=== PATIENT | female | born 1965 | race Caucasian/White ===

== ENCOUNTER 2016-06-21 18:03 | Emergency (ER) | payer MEDICAID, OTHER ==
[2016-06-21] MEDS ORDERED: NS 1,000 ML IV ONE (18:35)
[2016-06-21 18:39] LABS: % IMMATURE GRANULYOCYTES 0.4 % (0.0-1.1); ABSOLUTE IMMATURE GRANULOCYTES 0.04 10^3/uL (0.00-0.10); ADD DIFF? NO; ADD MORPH? NO; ADD SCAN? NO; ATYPICAL LYMPHOCYTE FLAG 10 (0-99); FRAGMENT RBC FLAG 0 (0-99); HEMATOCRIT 36.7 % (38.0-47.0); HEMOGLOBIN 12.7 g/dL (12.6-16.3); LEFT SHIFT FLG 20 (0-99); LIPEMIA HEMOLYSIS FLAG 90 (0-99); MEAN CELL HEMOGLOBIN 28.7 pg (27.9-34.1); MEAN CELL HEMOGLOBIN CONCENTR. 34.6 g/dL (32.4-36.7); MEAN CELL VOLUME 82.8 fL (81.5-99.8); MEAN PLATELET VOLUME 9.1 fL (8.7-11.7); PLATELET CLUMPS FLAG 0 (0-99); PLATELET COUNT 326 10^3/uL (150-400); RED BLOOD CELL COUNT 4.43 10^6/uL (4.18-5.33); RED CELL DISTRIBUTION WIDTH 12.7 % (11.5-15.2)
[2016-06-21 18:54] LABS: COLOR YELLOW; LEUKOCYTE ESTERASE,URINE 1+ (NEGATIVE); NITRITE,URINE NEGATIVE (NEGATIVE)
[2016-06-21 18:56] LABS: MUCUS TRACE /lpf (NONE-1+)
[2016-06-21 18:59] LABS: ANION GAP 11 mEq/L (8-16); CALCIUM 9.1 mg/dL (8.5-10.4); CARBON DIOXIDE 22 mEq/l (22-31); CHLORIDE 100 mEq/L (97-110); CREATININE 0.6 mg/dL (0.6-1.0); GLOMERULAR FILTRATION RATE > 60; GLUCOSE 87 mg/dL (70-100); SODIUM 133 mEq/L (134-144)
--- NOTE | 2016-06-21 19:05 | EDPHY ---
H & P Stated Complaint: abd cramping(no periods for 6 months)so bad felt she would pass out Time Seen by Provider: 06/21/16 18:19 HPI/ROS: CHIEF COMPLAINT: Lower abdominal cramping HISTORY OF PRESENT ILLNESS: 50-year-old female presents emergency department reporting lower abdominal cramping intermittent starting in the middle of the night last night. Patient reports it completely goes away between episodes. Tonight she had 3 episodes closer together and more severe. She states her pain was so severe she dropped to her knees, became sweaty, nauseous and felt like she was going to pass out. Patient denies fevers or chills. She reports the last 2 nights she ate coconut butter which she has never eaten before, both nights she developed hives and burning in her mouth. She reports normal bowel movements for her which are loose. No vomiting. Patient denies urinary frequency, urgency or dysuria. She does report a different odor to her urine. She denies vaginal discharge. Patient reports she has not had a menstrual period for 5-6 months. Patient is being currently worked up for rheumatoid arthritis. She has taken ibuprofen a few times over the last 5 days, and Celebrex twice in the last 3 days. Patient denies back pain. Patient denies chest pain or shortness of breath. No abdominal surgeries. REVIEW OF SYSTEMS: A comprehensive 10 point review of systems is otherwise negative aside from elements mentioned in the history of present illness. Source: Patient Exam Limitations: No limitations - Personal History LMP (Females 10-55): Over 28 Days Ago Current Tetanus/Diphtheria Vaccine: No - Medical/Surgical History Hx Asthma: No Hx Chronic Respiratory Disease: No Hx Diabetes: No Hx Cardiac Disease: No Hx Renal Disease: No Hx Cirrhosis: No Hx Alcoholism: No Hx HIV/AIDS: No Hx Splenectomy or Spleen Trauma: No Other PMH: RA - Social History Smoking Status: Never smoked - Physical Exam Exam: Physical Exam Gen: Alert and Oriented, NAD HEENT: PERRL, moist mucous membranes NECK: no meningismus CV: regular rate and regular rhythm PULM: CTAB, no wheezes ABDOMEN: soft, non tender to palpation, BS present BACK: No CVA tenderness NEURO: Neurologically grossly intact EXTREMITIES: normal appearing SKIN: no rash or break in skin on exposed skin PSYCH: answers questions appropriately. Constitutional: Initial Vital Signs Temperature (C) 36.9 C 06/21/16 18:07 Heart Rate 83 06/21/16 18:07 Respiratory Rate 17 06/21/16 18:07 Blood Pressure 98/59 L 06/21/16 18:07 O2 Sat (%) 99 06/21/16 18:07 O2 Delivery Mode Room Air Allergies/Adverse Reactions: No Known Allergies Allergy (Unverified 06/21/16 18:06) Home Medications: Medication Instructions Recorded ASPIRIN 06/21/16 CeleBREX 06/21/16 Cephalexin [Keflex] 500 mg PO BID 3 Days 06/21/16 IBUPROFEN 06/21/16 Medical Decision Making - Diagnostics Imaging Results: Imaging Impressions Pelvic/Renal Ultrasound 06/21/16 19:04 Impression: Negative pelvic ultrasound, a source for pelvic pain is not identified. Results called and discussed with Maddie Gonzalez NP on 06/21/2016 at 21:55 Imaging: Discussed imaging studies w/ [employer] teacher Radiologist ED Course/Re-evaluation: IV established, CBC, chemistry panel, urinalysis, test and pelvic ultrasound ordered. CBC shows a mildly elevated white blood cell count at 10,000 with a left shift, chemistry panel is unremarkable, urinalysis shows 1-3 RBCs, 5-10 WBCs, pelvic ultrasound is normal. I will treat the patient with Keflex for a urinary tract infection. I am unsure if her abdominal cramping is due to her urinary tract infection or allergic reaction to the coconut butter. Patient is advised to stop eating coconut as it causes ulcers in her mouth. Urine culture is pending. Patient is given strict return precautions for any worsening symptoms, new symptoms or concerns. Differential Diagnosis: Diagnosis considered but not limited to appendicitis, ovarian cyst, ovarian torsion, urinary tract infection, pyelonephritis, gastroenteritis, allergic reaction - Data Points Laboratory Results: Laboratory Results 06/21/16 18:29 06/21/16 18:29 06/21/16 06/21/16 06/21/16 18:40 18:29 18:29 WBC RBC Hgb Hct MCV MCH MCHC RDW Plt Count MPV Neut % (Auto) Lymph % (Auto) [place] % (Auto) Eos % (Auto) Baso % (Auto) Nucleat RBC Rel Count Absolute Neuts (auto) Absolute Lymphs (auto) Absolute Monos (auto) Absolute Eos (auto) Absolute Basos (auto) Absolute Nucleated RBC Immature Gran % Immature Gran # Sodium 133 mEq/L L mEq/L (134-144) Potassium 4.0 mEq/L mEq/L (3.5-5.2) Chloride 100 mEq/L mEq/L (97-110) Carbon Dioxide 22 mEq/l mEq/l (22-31) Anion Gap 11 mEq/L mEq/L (8-16) BUN 16 mg/dL mg/dL (7-23) Creatinine 0.6 mg/dL mg/dL (0.6-1.0) Estimated GFR > 60 Glucose 87 mg/dL mg/dL (70-100) Calcium 9.1 mg/dL mg/dL (8.5-10.4) Beta HCG, Qual NEGATIVE Urine Color YELLOW Urine Appearance HAZY Urine pH 5.0 (5.0-7.5) Ur Specific [place] 1.018 (1.002-1.030) Urine Protein NEGATIVE (NEGATIVE) Urine Ketones 1+ H (NEGATIVE) Urine Blood NEGATIVE (NEGATIVE) Urine Nitrate NEGATIVE (NEGATIVE) Urine Bilirubin NEGATIVE (NEGATIVE) Urine Urobilinogen NEGATIVE EU EU (0.2-1.0) Ur Leukocyte Esterase 1+ H (NEGATIVE) Urine RBC 3-5 /hpf H /hpf (0-3) Urine WBC 5-10 /hpf H /hpf (0-3) Ur Epithelial Cells TRACE /lpf /lpf (NONE-1+) Urine Mucus TRACE /lpf /lpf (NONE-1+) Urine Glucose NEGATIVE (NEGATIVE) 06/21/16 18:29 WBC 10.41 10^3/uL H 10^3/uL (3.80-9.50) RBC 4.43 10^6/uL 10^6/uL (4.18-5.33) Hgb 12.7 g/dL g/dL (12.6-16.3) Hct 36.7 % L % (38.0-47.0) MCV 82.8 fL fL (81.5-99.8) MCH 28.7 pg pg (27.9-34.1) MCHC 34.6 g/dL g/dL (32.4-36.7) RDW 12.7 % % (11.5-15.2) Plt Count 326 10^3/uL 10^3/uL (150-400) MPV 9.1 fL fL (8.7-11.7) Neut % (Auto) 81.4 % H % (39.3-74.2) Lymph % (Auto) 11.4 % L % (15.0-45.0) [place] % (Auto) 6.1 % % (4.5-13.0) Eos % (Auto) 0.4 % L % (0.6-7.6) Baso % (Auto) 0.3 % % (0.3-1.7) Nucleat RBC Rel Count 0.0 % % (0.0-0.2) Absolute Neuts (auto) 8.48 10^3/uL H 10^3/uL (1.70-6.50) Absolute Lymphs (auto) 1.19 10^3/uL 10^3/uL (1.00-3.00) Absolute Monos (auto) 0.63 10^3/uL 10^3/uL (0.30-0.80) Absolute Eos (auto) 0.04 10^3/uL 10^3/uL (0.03-0.40) Absolute Basos (auto) 0.03 10^3/uL 10^3/uL (0.02-0.10) Absolute Nucleated RBC 0.00 10^3/uL 10^3/uL (0-0.01) Immature Gran % 0.4 % % (0.0-1.1) Immature Gran # 0.04 10^3/uL 10^3/uL (0.00-0.10) Sodium Potassium Chloride Carbon Dioxide Anion Gap BUN Creatinine Estimated GFR Glucose Calcium Beta HCG, Qual Urine Color Urine Appearance Urine pH Ur Specific [place] Urine Protein Urine Ketones Urine Blood Urine Nitrate Urine Bilirubin Urine Urobilinogen Ur Leukocyte Esterase Urine RBC Urine WBC Ur Epithelial Cells Urine Mucus Urine Glucose Medications Given: Discontinued Medications Sodium Chloride (Ns) 1,000 mls @ 0 mls/hr IV ONCE ONE PRN Reason: Wide Open Stop: 06/21/16 18:36 Last Admin: 06/21/16 18:36 Dose: 1,000 mls Departure - Departure Disposition: Home, Routine, Self-Care Clinical Impression: Urinary tract infection Qualifiers: Urinary tract infection type: site unspecified Hematuria presence: without hematuria Qualified Code(s): N39.0 - Urinary tract infection, site not specified Allergic reaction Qualifiers: Encounter type: initial encounter Qualified Code(s): T78.40XA - Allergy, unspecified, initial encounter Condition: Good Instructions: Cephalexin (By mouth), Urinary Tract Infection in Women (ED), Food Allergy (ED) Additional Instructions: Take 500 mg of Keflex twice a day for 5 days, drink plenty of fluids. Stop eating anything with coconut. Return to the emergency department for any worsening symptoms, new symptoms or concerns. Referrals: [facility],. [Clinic] - As per Instructions Prescriptions: Cephalexin [Keflex] 500 mg PO BID 3 Days
[2016-06-21] MEDS ORDERED: CEPHALEXIN 500MG PREPACK#4 BTL TAKEHOME ONE (22:07)
[2016-06-21 22:24] VITALS: BP 89/62; PULSE 72; RESP 16; TEMP 98.6; O2SAT 95
== END 2016-06-21 22:23 | disposition home or self-care (01) ==
DX: N39.0 Urinary tract infection, site not specified (principal); B96.89 Other specified bacterial agents as the cause of diseases classified elsewhere; T78.40XA Allergy, unspecified, initial encounter; Z79.82 Long term (current) use of aspirin